=== PATIENT | male | born 1985 | race Caucasian/White ===

== ENCOUNTER 2016-07-27 16:53 | Inpatient (IN) ==
--- NOTE | 2016-07-27 17:15 | Emergency Department Note ---
Disposition Clinical Impression: Bipolar disorder, Depression, Paranoia, Suicidal ideation Disposition: Admitted As Inpatient Condition: Good Referrals: Dorinda Vogt [Primary Care Provider] - Forms: ED Satisfaction Letter Time of Disposition: 21:23 Psych HPI - General Chief Complaint: ED Psychiatric Symptoms Stated Complaint: SI Time Seen by Provider: 07/27/16 17:07 Source: patient, family Mode of arrival: ambulatory Limitations: no limitations Nursing Notes Reviewed: Yes Vital Signs Reviewed: Yes - History of Present Illness HPI Narrative: This is a 31-year-old male who states for the last several days he has been worse with his depression, anxiety, panic attacks, and paranoia. Patient has a history of bipolar disease. Patient states he was with his daughter over the holidays and that helped him. Patient states his ex- is trying to take his daughter away from him and he is having relationship problems and that is making everything amplified. Patient denies any recreational drug or alcohol use. Patient is not having any physical complaints. Pt complaint: suicidal ideation, feels depressed, anxiety - Related Data Home Medications Medication Instructions Recorded Confirmed ClonazePAM [Klonopin] 0.5 mg PO TID 07/27/16 07/27/16 FLUoxetine HCl [PROzac] 20 mg PO DAILY 07/27/16 07/27/16 TraZODone 50 mg PO HS 07/27/16 07/27/16 Allergies Allergy/AdvReac Type Severity Reaction Status Date / Time No Known Allergies Allergy Verified 02/19/15 05:45 All systems ED: reviewed and negative except as stated. Constitutional: Denies: fever, chills, weakness, weight change Eyes: Denies: eye pain, eye discharge, vision change ENT ED: Denies: ear pain, throat pain, dental pain, hearing loss, epistaxis, congestion, dysphagia Cardiovascular: Denies: chest pain, palpitations, dyspnea on exertion, edema, syncope Respiratory: Denies: cough, dyspnea, wheezes, hemoptysis, stridor Gastrointestinal: Denies: abdominal pain, nausea, vomiting, diarrhea, constipation, hematemesis, melena, hematochezia Genitourinary: Denies: urgency, dysuria, frequency, hematuria Musculoskeletal: Denies: back pain, neck pain, arthralgia, myalgia Integumentary: Denies: rash, abrasion, lesions Neurological: Denies: headache, weakness, numbness, paresthesias, confusion, abnormal gait, vertigo Psychiatric: Reports: anxiety, depression, suicidal thoughts, other (paranoia, panic attacks). Denies: homicidal thoughts, auditory hallucinations, visual hallucinations Endocrine: Denies: fatigue Hematological/Lymphatic: Denies: easy bleeding, easy bruising Allergic/Immunologic: Denies: facial swelling, urticaria Past Medical History - Past Medical History Attestation: Yes The following information was validated with the patient. Source: patient Medical history: Reports: seizures Surgical history: Reports: non-contributory Psychiatric history: Reports: anxiety, ADHD, bipolar, depression, prior suicide attempt, previous psychiatric hospitalization - Social History Smoking Status: Current every day smoker Smokeless Tobacco Status: No Alcohol use: Reports: none Drug use: Reports: IVDU, prescription drug abuse Physical Exam - General Limitations: no limitations General appearance: alert, in no apparent distress - Head Head exam: atraumatic, normocephalic, normal inspection - Eye Eye exam: Present: normal appearance, PERRL, EOMI - ENT ENT exam: normal exam, normal oropharynx, mucous membranes moist - Expanded ENT Exam External ear exam: Present: normal external inspection Mouth exam: Present: normal external inspection Teeth exam: Present: normal inspection Throat exam: Present: normal inspection - Neck Neck exam: Present: normal inspection, full ROM, trachea midline - Chest Chest inspection: Present: normal inspection, symmetric chest wall rise - Respiratory Respiratory exam: Present: normal lung sounds bilaterally - Cardiovascular Cardiovascular exam: Present: regular rate, normal rhythm, normal heart sounds - Abdominal Exam Abdominal exam: Present: soft, Non-Tender. Absent: tenderness, distention, guarding, rebound, rigidity - Extremities Exam Extremities exam: Present: normal inspection, full ROM. Absent: tenderness, pedal edema - Expanded Upper Extremity Exam Shoulder exam: Present: normal inspection, full ROM Arm exam: Present: normal inspection, full ROM Elbow exam: Present: normal inspection, full ROM Forearm/Wrist exam: Present: normal inspection, full ROM Hand exam: Present: normal inspection, full ROM Vascular exam: Normal: capillary refill, radial pulse - Expanded Lower Extremity Exam Hip/Pelvis exam: Present: normal inspection, full ROM Upper leg exam: Present: normal inspection, full ROM Knee exam: Present: normal inspection, full ROM Lower leg exam: Present: normal inspection, full ROM Ankle exam: Present: normal inspection, full ROM Foot/toe exam: Present: normal inspection, full ROM Neurovascular/Tendon exam: Absent: motor deficit, sensory deficit, tendon deficit - Back Exam Back exam: Present: normal inspection, full ROM. Absent: tenderness - Neurological Exam Neurological exam: Present: alert, oriented X3 - Expanded Neurological Exam Patient oriented to: Present: person, place, time Coma Scale Eye Opening: Spontaneous Coma Scale Motor Response: Obeys Commands Coma Scale Verbal Response: Oriented Coma Scale Total: 15 - Psychiatric Psychiatric exam: Present: depressed, agitated, suicidal ideation - Skin Skin exam: Present: warm, dry, intact, normal color Course - Consultations Consultation #1: 1A saw pt and will admit him. Time: 21:23 Vital Signs Temperature 97.9 F 07/27/16 17:06 Pulse Rate 99 07/27/16 17:06 Respiratory Rate 18 07/27/16 17:06 Blood Pressure 147/92 07/27/16 17:06 O2 Sat by Pulse Oximetry 98 07/27/16 17:06 Temperature 97.9 F 07/27/16 17:06 Pulse Rate 90 07/27/16 21:41 Respiratory Rate 18 07/27/16 21:41 Blood Pressure 144/90 07/27/16 21:41 O2 Sat by Pulse Oximetry 98 07/27/16 21:41 Oxygen Delivery Oxygen Delivery Room Air Psych - Medical Records Medical records reviewed: Yes I reviewed the patient's medical records. - Lab Data Lab results reviewed: Yes I reviewed the patient's lab results. Result diagrams: 07/27/16 17:33 07/27/16 17:33 Lab Results 07/27/16 07/27/16 07/27/16 Range/Units 17:15 17:15 17:33 WBC 6.0 (4.3-11.1) K/mcL RBC 4.48 (4.19-5.50) M/mcL Hgb 13.6 (12.9-16.9) g/dL Hct 39.8 (37.5-50.1) % MCV 88.8 (83.0-100.0) fL MCH 30.4 (28.0-33.3) pg MCHC 34.2 (31.6-35.5) g/dL RDW 12.9 (11.5-14.5) % Plt Count 339 (140-400) K/mcL MPV 9.1 L (9.4-12.4) fL Immature Gran % 0.3 (0-4) % Seg Neutrophils % 49.1 % Lymphocytes % 38.9 % Monocytes % 8.0 % Eosinophils % 3.0 % Basophils % 0.7 % Neutrophils # 2.9 (1.6-8.9) K/mcL Lymphocytes # 2.3 (0.6-4.6) K/mcL Monocytes # 0.5 (0.0-1.3) K/mcL Eosinophils # 0.2 (0.0-0.6) K/mcL Basophils # 0.0 (0.0-0.2) K/mcL Sodium (136-145) mEq/L Potassium (3.5-4.5) mEq/L Chloride (98-109) mEq/L Carbon Dioxide (19-29) mEq/L BUN (8-26) mg/dL Creatinine (0.72-1.25) mg/dL Est GFR ( Amer) (> 60) Est GFR (Non-Af Amer) (> 60) BUN/Creatinine Ratio (6-26) Glucose (70-99) mg/dL Calculated Osmolality (280-300) Calcium (8.6-10.8) mg/dL Total Bilirubin (0.2-1.2) mg/dL AST (5-34) Units/L ALT (0-55) Units/L Alkaline Phosphatase (38-126) Units/L Serum Total Protein (6.0-8.3) g/dL Albumin (3.5-5.0) g/dL Globulin (2.4-3.5) g/dL Albumin/Globulin Ratio (1.1-2.2) TSH (0.350-4.840) mcIU/mL Urine Color Yellow (Yellow) Urine Clarity Clear (Clear) Urine pH 6.0 (5.0-8.0) pH Units Ur Specific [place] 1.012 (1.010-1.025) Urine Protein Negative (Neg-Trace) mg/dL Urine Glucose (UA) Normal (Normal) mg/dL Urine Ketones 40 H (Negative) mg/dL Urine Blood Negative (Negative) Urine Nitrite Negative (Negative) Urine Bilirubin Negative (Negative) Urine Urobilinogen Normal (Normal) mg/dL Ur Leukocyte Esterase Negative (Negative) Ur Culture Indicated? NO (NO) Salicylates (15-30) mg/dL Urine Opiates Screen Negative (Kmgiob=676) ng/mL Acetaminophen (10-30) mcg/mL Ur Barbiturates Screen Negative (Larbvv=087) ng/mL Ur Phencyclidine Scrn Negative (Cutoff=25) ng/mL Ur Amphetamines Screen Positive H (Dgoslh=2590) ng/mL U Benzodiazepines Scrn Positive H (Kecxbe=605) ng/mL Urine Cocaine Screen Negative (Cutoff= 300) ng/mL U Marijuana (THC) Screen Positive H (Cutoff = 50) ng/mL Ethyl Alcohol (0-10) mg/dL Hepatitis A IgM Ab (Nonreactive) Hep Bs Antigen (Nonreactive) Hep B Core IgM Ab (Nonreactive) Hepatitis C Ab Screen (Nonreactive) 07/27/16 07/27/16 Range/Units 17:33 17:33 WBC (4.3-11.1) K/mcL RBC (4.19-5.50) M/mcL Hgb (12.9-16.9) g/dL Hct (37.5-50.1) % MCV (83.0-100.0) fL MCH (28.0-33.3) pg MCHC (31.6-35.5) g/dL RDW (11.5-14.5) % Plt Count (140-400) K/mcL MPV (9.4-12.4) fL Immature Gran % (0-4) % Seg Neutrophils % % Lymphocytes % % Monocytes % % Eosinophils % % Basophils % % Neutrophils # (1.6-8.9) K/mcL Lymphocytes # (0.6-4.6) K/mcL Monocytes # (0.0-1.3) K/mcL Eosinophils # (0.0-0.6) K/mcL Basophils # (0.0-0.2) K/mcL Sodium 139 (136-145) mEq/L Potassium 3.7 (3.5-4.5) mEq/L Chloride 105 (98-109) mEq/L Carbon Dioxide 28 (19-29) mEq/L BUN 8 (8-26) mg/dL Creatinine 0.70 L (0.72-1.25) mg/dL Est GFR ( Amer) > 60 (> 60) Est GFR (Non-Af Amer) > 60 (> 60) BUN/Creatinine Ratio 11 (6-26) Glucose 160 H (70-99) mg/dL Calculated Osmolality 290 (280-300) Calcium 8.7 (8.6-10.8) mg/dL Total Bilirubin 0.9 (0.2-1.2) mg/dL AST 39 H (5-34) Units/L ALT 125 H (0-55) Units/L Alkaline Phosphatase 58 (38-126) Units/L Serum Total Protein 7.1 (6.0-8.3) g/dL Albumin 3.6 (3.5-5.0) g/dL Globulin 3.5 (2.4-3.5) g/dL Albumin/Globulin Ratio 1.0 L (1.1-2.2) TSH 0.209 L (0.350-4.840) mcIU/mL Urine Color (Yellow) Urine Clarity (Clear) Urine pH (5.0-8.0) pH Units Ur Specific [place] (1.010-1.025) Urine Protein (Neg-Trace) mg/dL Urine Glucose (UA) (Normal) mg/dL Urine Ketones (Negative) mg/dL Urine Blood (Negative) Urine Nitrite (Negative) Urine Bilirubin (Negative) Urine Urobilinogen (Normal) mg/dL Ur Leukocyte Esterase (Negative) Ur Culture Indicated? (NO) Salicylates < 5.0 L (15-30) mg/dL Urine Opiates Screen (Kzeueg=627) ng/mL Acetaminophen < 1.0 L (10-30) mcg/mL Ur Barbiturates Screen (Swknen=928) ng/mL Ur Phencyclidine Scrn (Cutoff=25) ng/mL Ur Amphetamines Screen (Hutynh=7965) ng/mL U Benzodiazepines Scrn (Dlcjbo=452) ng/mL Urine Cocaine Screen (Cutoff= 300) ng/mL U Marijuana (THC) Screen (Cutoff = 50) ng/mL Ethyl Alcohol < 10 (0-10) mg/dL Hepatitis A IgM Ab Nonreactive (Nonreactive) Hep Bs Antigen Nonreactive (Nonreactive) Hep B Core IgM Ab Nonreactive (Nonreactive) Hepatitis C Ab Screen Reactive H (Nonreactive) - EKG Data EKG attestation: Yes I reviewed and interpreted this EKG. EKG shows normal: sinus rhythm Rate: bradycardia (59) Rhythm: NSR [place]/QRS: normal Interpretation: no acute changes, normal EKG Psychiatric Medical Clearance - Medical Clearance Checklist Medical History: No Social History Section defined Current Vitals: Last Vital Signs Temp 97.9 F 07/27/16 17:06 Pulse 90 07/27/16 21:41 Resp 18 07/27/16 21:41 BP 144/90 07/27/16 21:41 Pulse Ox 98 07/27/16 21:41 Psychiatric Lab Panel: Drug Levels and Toxicity 07/27/16 07/27/16 17:15 17:33 Urine Opiates Screen Negative Acetaminophen < 1.0 L Ur Barbiturates Screen Negative Ur Phencyclidine Scrn Negative Ur Amphetamines Screen Positive H U Benzodiazepines Scrn Positive H Urine Cocaine Screen Negative U Marijuana (THC) Screen Positive H Ethyl Alcohol < 10 Abnormal Labs: Abnormal lab results MPV 9.1 fL (9.4-12.4) L 07/27/16 17:33 Creatinine 0.70 mg/dL (0.72-1.25) L 07/27/16 17:33 Glucose 160 mg/dL (70-99) H 07/27/16 17:33 AST 39 Units/L (5-34) H 07/27/16 17:33 ALT 125 Units/L (0-55) H 07/27/16 17:33 Albumin/Globulin Ratio 1.0 (1.1-2.2) L 07/27/16 17:33 TSH 0.209 mcIU/mL (0.350-4.840) L 07/27/16 17:33 Urine Ketones 40 mg/dL (Negative) H 07/27/16 17:15 Salicylates < 5.0 mg/dL (15-30) L 07/27/16 17:33 Acetaminophen < 1.0 mcg/mL (10-30) L 07/27/16 17:33 Ur Amphetamines Screen Positive ng/mL (Evalpn=1223) H 07/27/16 17:15 U Benzodiazepines Scrn Positive ng/mL (Siebzu=995) H 07/27/16 17:15 U Marijuana (THC) Screen Positive ng/mL (Cutoff = 50) H 07/27/16 17:15 Hepatitis C Ab Screen Reactive (Nonreactive) H 07/27/16 17:33 Statement of Medical Clearance: I have evaluated the patient, reviewed diagnostic information, and certify that the patient's medical condition is sufficiently stable that transfer to the psychiatric unit does not pose a significant risk of deterioration.
[2016-07-27 17:26] LABS: Bilirubin,Urine Negative (Negative); Blood,Urine Negative (Negative); Clarity,Urine Clear (Clear); Color,Urine Yellow (Yellow); Glucose,Urine (UA) Normal (Normal); Ketones,Urine 40 mg/dL (Negative); Leukocyte Esterase,Urine Negative (Negative); Nitrite,Urine Negative (Negative); Protein,Urine Negative (Neg-Trace); Specific Gravity,Urine 1.012 (1.010-1.025); Urobilinogen,Urine Normal (Normal)
[2016-07-27 17:31] LABS: Amphetamine Screen,Urine Positive ng/mL (Cutoff=1000); Barbiturate Screen,Urine Negative ng/mL (Cutoff=200); Benzodiazepines Screen,Urine Positive ng/mL (Cutoff=200); Cannabinoid Screen,Urine Positive ng/mL (Cutoff = 50); Cocaine Screen,Urine Negative ng/mL (Cutoff= 300); Opiate Screen,Urine Negative ng/mL (Cutoff=300); Phencyclidine Screen,Urine Negative ng/mL (Cutoff=25)
[2016-07-27 17:54] LABS: Basophils % 0.7 %; Eosinophils # 0.2 K/mcL (0.0-0.6); Hematocrit 39.8 % (37.5-50.1); Hemoglobin 13.6 g/dL (12.9-16.9); Immature Granulocytes % 0.3 % (0-4); Lymphocytes # 2.3 K/mcL (0.6-4.6); Lymphocytes % 38.9 %; Mean Corpuscular HGB Conc 34.2 g/dL (31.6-35.5); Mean Corpuscular Hemoglobin 30.4 pg (28.0-33.3); Mean Corpuscular Volume 88.8 fL (83.0-100.0); Mean Platelet Volume 9.1 fL (9.4-12.4); Monocytes # 0.5 K/mcL (0.0-1.3); Neutrophils # 2.9 K/mcL (1.6-8.9); Platelet Count 339 K/mcL (140-400); Red Blood Count 4.48 M/mcL (4.19-5.50); Red Cell Distribution Width 12.9 % (11.5-14.5); Segmented Neutrophils % 49.1 %
[2016-07-27 18:18] LABS: Alanine Aminotransferase 125 Units/L (0-55); Albumin 3.6 g/dL (3.5-5.0); Alkaline Phosphatase 58 Units/L (38-126); Aspartate Amino Transferase 39 Units/L (5-34); BUN/Creatinine Ratio 11 (6-26); Bilirubin,Total 0.9 mg/dL (0.2-1.2); Blood Urea Nitrogen 8 mg/dL (8-26); Calcium 8.7 mg/dL (8.6-10.8); Carbon Dioxide 28 mEq/L (19-29); Chloride 105 mEq/L (98-109); Globulin 3.5 g/dL (2.4-3.5); Glucose 160 mg/dL (70-99); Osmolality,Calculated 290 (280-300); Potassium 3.7 mEq/L (3.5-4.5); Sodium 139 mEq/L (136-145); Total Protein 7.1 g/dL (6.0-8.3); eGFR For African Americans > 60 (> 60); eGFR For Non-African Americans > 60 (> 60)
[2016-07-27 18:20] LABS: Acetaminophen < 1.0 mcg/mL (10-30); Ethanol < 10 mg/dL (0-10); Salicylate < 5.0 mg/dL (15-30)
[2016-07-27 18:40] LABS: Thyroid Stimulating Hormone 0.209 mcIU/mL (0.350-4.840)
[2016-07-27 19:52] LABS: Hepatitis A Antibody IgM Nonreactive (Nonreactive); Hepatitis B Core IgM Nonreactive (Nonreactive); Hepatitis B Surface Antigen Nonreactive (Nonreactive)
[2016-07-27] MEDS ORDERED: *HR* LORazepam 1 MG TABLET PO ONE (21:15)
[2016-07-27 22:16] LABS: Hepatitis C Virus Antibody Reactive (Nonreactive)
[2016-07-28] MEDS ORDERED: Ibuprofen 400 MG TABLET PO PRN (00:01)
[2016-07-28] MEDS ORDERED: MOM Conc 10 ML UD.LIQ PO PRN (00:01)
[2016-07-28] MEDS ORDERED: Haloperidol Lactate 5 MG/ML VIAL IM PRN (00:01)
[2016-07-28] MEDS ORDERED: Mag Hydrox/Al Hydrox/Simeth 30 ML UDC PO PRN (00:01)
[2016-07-28] MEDS ORDERED: *HR* LORazepam 1 MG TABLET PO PRN (00:17)
[2016-07-28] MEDS ORDERED: *HR* LORazepam 2 MG/ML VIAL IM PRN (00:17)
[2016-07-28] MEDS ORDERED: traZODone 50 MG TABLET PO SCH (00:25)
[2016-07-28] MEDS: Nicotine 21 MG PATCH.TD24 TD SCH ×2 (01:05→10:44)
[2016-07-28] MEDS ORDERED: FLUoxetine 20 MG CAPSULE PO SCH (09:00)
--- NOTE | 2016-07-28 10:23 | Psychiatry History & Physical ---
Date of Encounter: 07/28/16 Time of Encounter: 09:40 History of Present Illness Patient Stated Chief Complaint: "I feel suicidal" Medicare Admission Attestation: For traditional Medicare patients the provided hospital inpatient services are reasonable and necessary and in the case of services not specified as inpatient -only under 42 CFR 419.22 (n), that they are appropriately provided as inpatient services in accordance 42 CFR 412.3. For Critical Access Hospital the patient may reasonably be expected to be discharged or transferred to a hospital within 96 hours after admission to the Critical Access Hospital. Admitted From: Emergency Dept Plans for Post Hospital Care: Home History of Present Illness: Mr. Yang is a 31 year old male Was referred for hospitalization for depression and suicidal ideation with a plan to hang himself. Patient is known to us from prior hospitalization he is noted to have a diagnosis of depression. Patient reported that he has been receiving treatment for depression but has been noticing a relapse of his depressive symptoms for the last couple of months. He reported that his ongoing stressors included the holiday season and arguments and conflicts with his ex- who did not allow him to spend time with his daughter around the holidays. Patient reported that this has devastated him and his contribution to his depressive symptoms. He also reported that he broke up with his girlfriend which is also a big stressor. Because of the above-mentioned challenges he has been noticing low mood and anhedonia hopelessness helplessness crying and weeping spells and low energy levels poor sleep and appetite and recurrent suicidal thoughts and ideations. He was actively suicidal and was not able to contract for safety and it was decided to hospitalize him at [address] for further stabilization and for safety concerns Past Med Surg Social Fam HX - Past Medical History Medical history: hepatitis, other - Past Psychiatric History Psychiatric history: Reports: anxiety, depression, previous psychiatric hospitalization Past psychiatric history details: Patient has a history of depression and anxiety and has prior psychiatric hospitalization at [facility] in October 2015. Patient is currently receiving outpatient treatment from his primary care physician. Patient has been prescribed Prozac BuSpar and trazodone and Klonopin. Family psychiatric history: Yes Family Psychiatric History Details: Uncle and aunt suffer from anxiety Family History of Suicide: Attempted Family Suicide History Details: Aunt has attempted suicide by overdosing - Past Surgical History Surgical History: non-contributory - Social History Smoking Status: Current every day smoker Smokeless Tobacco Status: No Alcohol use: none Drug use: IVDU, prescription drug abuse Occupational status: disabled Current living situation: Home - Independent Activity Level: Independent ambulation Recent Out of Country Travel Within the Last 8 Weeks: No Exposure or Possible Exposure to Illness During Travel: No Additional social history: Patient is . Has an 18-year-old daughter. He resides by himself and is currently on disability. He denies any current legal issues. Medications & Allergies Buspirone HCl [Buspar] 5 mg PO BID 07/27/16 [History] ClonazePAM [Klonopin] 0.5 mg PO TID 07/27/16 [History] FLUoxetine HCl [PROzac] 20 mg PO DAILY 07/27/16 [History] Propranolol HCl [Innopran Xl] 80 mg PO DAILY 07/27/16 [History] TraZODone 50 mg PO HS 07/27/16 [History] Allergies No Known Allergies Allergy (Verified 02/19/15 05:45) Review of Systems Constitutional: Denies: fever, chills, weakness, weight change Eyes: Denies: eye pain, vision change Ears, Nose, Throat: Denies: ear pain, throat pain, dental pain, hearing loss, congestion Cardiovascular: Denies: chest pain, palpitations, dyspnea on exertion Respiratory: Denies: cough, dyspnea, wheezes Gastrointestinal: Denies: abdominal pain, nausea, vomiting, diarrhea, constipation Genitourinary male: Denies: urgency, dysuria, frequency, genital lesions Genitourinary female: Denies: urgency, dysuria, frequency, abnormal menses, dyspareunia Musculoskeletal: Denies: joint swelling, joint pain Integumentary: Denies: rash, lesions, pruritus Neurological: Denies: headache, weakness, numbness, memory loss Psychiatric: Reports: depression, anxiety, abnormal sleep pattern, suicidal ideation, difficulty concentrating, hopelessness Endocrine: Denies: fatigue, heat or cold intolerance Hematologic/Lymphatic: Denies: easy bruising, lymphadenopathy Allergic/Immunologic: Denies: urticaria, itchy eyes Mental Status Exam Patient orientation: Yes Person, Yes Time, Yes Place Level of alertness: Alert Patient appearance: Disheveled Behavior: anxious, withdrawn Psychomotor activity: Slowed Eye contact: Maintains Eye Contact Mood description: Depressed, Anxious Affect description: congruent with mood, constricted, dysphoric Speech pattern: Slowed Speech volume: Soft/Quiet Thought process: Linear, Goal Oriented Thought content: Yes Suicidal ideation Perceptual disturbances: No Auditory hallucinations, No Visual hallucinations Attention span: Capable of Focused Attention Memory description: Grossly Intact Patient reliability: Reliable Historian Intelligence estimate: Average Judgment: Fair Insight: Partial Results - Vital Signs Vital signs: Temp Pulse Resp BP Pulse Ox 98 F 69 16 97/51 98 07/28/16 09:00 07/28/16 09:00 07/28/16 09:00 07/28/16 09:00 07/27/16 21:41 - Labs Labs: Laboratory Last Values WBC 6.0 K/mcL (4.3-11.1) 07/27/16 17:33 RBC 4.48 M/mcL (4.19-5.50) 07/27/16 17:33 Hgb 13.6 g/dL (12.9-16.9) 07/27/16 17:33 Hct 39.8 % (37.5-50.1) 07/27/16 17:33 MCV 88.8 fL (83.0-100.0) 07/27/16 17:33 MCH 30.4 pg (28.0-33.3) 07/27/16 17:33 MCHC 34.2 g/dL (31.6-35.5) 07/27/16 17:33 RDW 12.9 % (11.5-14.5) 07/27/16 17:33 Plt Count 339 K/mcL (140-400) 07/27/16 17:33 MPV 9.1 fL (9.4-12.4) L 07/27/16 17:33 Immature Gran % 0.3 % (0-4) 07/27/16 17:33 Seg Neutrophils % 49.1 % 07/27/16 17:33 Lymphocytes % 38.9 % 07/27/16 17:33 Monocytes % 8.0 % 07/27/16 17:33 Eosinophils % 3.0 % 07/27/16 17:33 Basophils % 0.7 % 07/27/16 17:33 Neutrophils # 2.9 K/mcL (1.6-8.9) 07/27/16 17:33 Lymphocytes # 2.3 K/mcL (0.6-4.6) 07/27/16 17:33 Monocytes # 0.5 K/mcL (0.0-1.3) 07/27/16 17:33 Eosinophils # 0.2 K/mcL (0.0-0.6) 07/27/16 17:33 Basophils # 0.0 K/mcL (0.0-0.2) 07/27/16 17:33 Sodium 139 mEq/L (136-145) 07/27/16 17:33 Potassium 3.7 mEq/L (3.5-4.5) 07/27/16 17:33 Chloride 105 mEq/L (98-109) 07/27/16 17:33 Carbon Dioxide 28 mEq/L (19-29) 07/27/16 17:33 BUN 8 mg/dL (8-26) 07/27/16 17:33 Creatinine 0.70 mg/dL (0.72-1.25) L 07/27/16 17:33 Est GFR ( Amer) > 60 (> 60) 07/27/16 17:33 Est GFR (Non-Af Amer) > 60 (> 60) 07/27/16 17:33 BUN/Creatinine Ratio 11 (6-26) 07/27/16 17:33 Glucose 160 mg/dL (70-99) H 07/27/16 17:33 Calculated Osmolality 290 (280-300) 07/27/16 17:33 Calcium 8.7 mg/dL (8.6-10.8) 07/27/16 17:33 Total Bilirubin 0.9 mg/dL (0.2-1.2) 07/27/16 17:33 AST 39 Units/L (5-34) H 07/27/16 17:33 ALT 125 Units/L (0-55) H 07/27/16 17:33 Alkaline Phosphatase 58 Units/L (38-126) 07/27/16 17:33 Serum Total Protein 7.1 g/dL (6.0-8.3) 07/27/16 17:33 Albumin 3.6 g/dL (3.5-5.0) 07/27/16 17:33 Globulin 3.5 g/dL (2.4-3.5) 07/27/16 17:33 Albumin/Globulin Ratio 1.0 (1.1-2.2) L 01/06/17 17:33 TSH 0.209 mcIU/mL (0.350-4.840) L 07/27/16 17:33 Urine Color Yellow (Yellow) 07/27/16 17:15 Urine Clarity Clear (Clear) 07/27/16 17:15 Urine pH 6.0 pH Units (5.0-8.0) 07/27/16 17:15 Ur Specific [place] 1.012 (1.010-1.025) 07/27/16 17:15 Urine Protein Negative mg/dL (Neg-Trace) 07/27/16 17:15 Urine Glucose (UA) Normal mg/dL (Normal) 07/27/16 17:15 Urine Ketones 40 mg/dL (Negative) H 07/27/16 17:15 Urine Blood Negative (Negative) 07/27/16 17:15 Urine Nitrite Negative (Negative) 07/27/16 17:15 Urine Bilirubin Negative (Negative) 07/27/16 17:15 Urine Urobilinogen Normal mg/dL (Normal) 07/27/16 17:15 Ur Leukocyte Esterase Negative (Negative) 07/27/16 17:15 Ur Culture Indicated? NO (NO) 07/27/16 17:15 Salicylates < 5.0 mg/dL (15-30) L 07/27/16 17:33 Urine Opiates Screen Negative ng/mL (Prundd=032) 07/27/16 17:15 Acetaminophen < 1.0 mcg/mL (10-30) L 07/27/16 17:33 Ur Barbiturates Screen Negative ng/mL (Zlyebn=878) 07/27/16 17:15 Ur Phencyclidine Scrn Negative ng/mL (Cutoff=25) 07/27/16 17:15 Ur Amphetamines Screen Positive ng/mL (Wcdbac=9327) H 07/27/16 17:15 U Benzodiazepines Scrn Positive ng/mL (Onlntw=203) H 07/27/16 17:15 Urine Cocaine Screen Negative ng/mL (Cutoff= 300) 07/27/16 17:15 U Marijuana (THC) Screen Positive ng/mL (Cutoff = 50) H 07/27/16 17:15 Ethyl Alcohol < 10 mg/dL (0-10) 07/27/16 17:33 Hepatitis A IgM Ab Nonreactive (Nonreactive) 07/27/16 17:33 Hep Bs Antigen Nonreactive (Nonreactive) 07/27/16 17:33 Hep B Core IgM Ab Nonreactive (Nonreactive) 07/27/16 17:33 Hepatitis C Ab Screen Reactive (Nonreactive) H 07/27/16 17:33 Assessment and Plan (1) MDD (major depressive disorder), recurrent severe, without psychosis Current visit: Yes Status: Acute Plan: Admit inpatient for safety and stabilization, Close observation, Suicide Precautions per unit protocol, Encourage participation in unit milieu, Group Therapy, Monitor sleep, Monitor appetite Additional Plan: Her reviewing the symptom diagnoses and treatment plan and explained the risks benefits side effects alternative to treatment and consequences of no treatment and informed consent from the patient was decided to discontinue patient's Prozac since it has not been helpful and to start the patient on Effexor which will be titrated and adjusted accordingly. Patient will also be increased for his anxiety symptoms. Patient will be continued on Klonopin as he was taking prior to his admission. Patient will be continued on trazodone and the dose will be increased to 100 mg at bedtime for insomnia. Risks, benefits, side effects, alternatives discussed w/pt: Yes Patient agreeable to treatment: Yes Plans for Post Hospital Care: Home Estimated Length of Stay (Days): 3 (2) Anxiety disorder Current visit: No Status: Acute Plan: Admit inpatient for safety and stabilization, Close observation, Suicide Precautions per unit protocol, Encourage participation in unit milieu, Group Therapy, Monitor sleep, Monitor appetite Additional Plan: Patient's BuSpar will be increased and Will be continued on Klonopin for his anxiety symptoms. These started on Effexor which will help with his anxiety as well as depression. Risks, benefits, side effects, alternatives discussed w/pt: Yes Patient agreeable to treatment: Yes Plans for Post Hospital Care: Home Estimated Length of Stay (Days): 3 Qualifiers: Anxiety disorder type: unspecified anxiety disorder Qualified Code(s): F41.9 - Anxiety disorder, unspecified
[2016-07-28] MEDS: clonazePAM 0.5 MG TABLET PO SCH ×3 (10:44→21:31)
[2016-07-28] MEDS: Venlafaxine XR (24 HR) 75 MG CAP.ER.24H PO SCH (10:44)
[2016-07-28] MEDS: traZODone 50 MG TABLET PO SCH (21:31)
[2016-07-29] MEDS: clonazePAM 0.5 MG TABLET PO SCH ×3 (09:40→20:07)
[2016-07-29] MEDS: Venlafaxine XR (24 HR) 75 MG CAP.ER.24H PO SCH (09:40)
[2016-07-29] MEDS: Nicotine 21 MG PATCH.TD24 TD SCH (09:40)
--- NOTE | 2016-07-29 12:08 | Psychiatry Progress Note ---
Date of Encounter: 07/29/16 Time of Encounter: 10:58 Subjective Interval history: Patient seen and interviewed. Not much change from yesterday. Continued to verbalize hopelessness helplessness and anxiety and nervousness. Patient is withdrawn and isolated not attending groups and participating in any activities. Patient is tolerating medications fairly well. Patient is unable to verbalize a safety plan and does not feel safe going home. Patient is encouraged to attend groups and start working on a safety plan. Review of Systems Psychiatric: Reports: depression, anxiety, abnormal sleep pattern, suicidal ideation, difficulty concentrating, hopelessness Objective: Exam Patient orientation: Yes Person, Yes Time, Yes Place Level of alertness: Alert Patient appearance: Disheveled Behavior: anxious, withdrawn Psychomotor activity: Slowed Eye contact: Maintains Eye Contact Mood description: Depressed, Anxious Affect description: congruent with mood, constricted, dysphoric Speech pattern: Slowed Speech volume: Soft/Quiet Thought process: Linear, Goal Oriented Thought content: Yes Suicidal ideation Perceptual disturbances: No Auditory hallucinations, No Visual hallucinations Judgment: Fair Insight: Partial Results - Vital Signs Vital Signs: Temp Pulse Resp BP Pulse Ox 98.4 F 65 16 119/69 98 07/29/16 09:00 07/29/16 09:00 07/29/16 09:00 07/29/16 09:00 07/27/16 21:41 Assessment and Plan (1) MDD (major depressive disorder), recurrent severe, without psychosis Current visit: Yes Status: Acute Plan: Continue hospitalization, Close observation, Suicide Precautions per unit protocol, Encourage participation in unit milieu, Group Therapy, Monitor sleep, Monitor appetite Additional Plan: continue Effexor Risks, benefits, side effects, alternatives discussed w/pt: Yes Patient agreeable to treatment: Yes (2) Anxiety disorder Current visit: No Status: Acute Plan: Continue hospitalization, Close observation, Suicide Precautions per unit protocol, Encourage participation in unit milieu, Group Therapy, Monitor sleep, Monitor appetite Risks, benefits, side effects, alternatives discussed w/pt: Yes Patient agreeable to treatment: Yes Qualifiers: Anxiety disorder type: unspecified anxiety disorder Qualified Code(s): F41.9 - Anxiety disorder, unspecified Consult Discharge Plan - Plan Referrals: Dorinda Vogt [Primary Care Provider] -
[2016-07-29] MEDS: traZODone 50 MG TABLET PO SCH (20:07)
[2016-07-30] MEDS: Venlafaxine XR (24 HR) 75 MG CAP.ER.24H PO SCH (09:04)
[2016-07-30] MEDS: clonazePAM 0.5 MG TABLET PO SCH ×3 (09:04→20:59)
[2016-07-30] MEDS: Nicotine 21 MG PATCH.TD24 TD SCH (09:04)
--- NOTE | 2016-07-30 12:11 | Electrocardiograph Report ---
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
--- NOTE | 2016-07-30 17:34 | Psychiatry Progress Note ---
Date of Encounter: 07/30/16 Time of Encounter: 16:00 Review of Systems Psychiatric: Reports: depression, anxiety, abnormal sleep pattern, suicidal ideation, difficulty concentrating, hopelessness Objective: Exam Patient orientation: Yes Person, Yes Time, Yes Place Level of alertness: Alert Patient appearance: Disheveled Behavior: anxious, withdrawn Psychomotor activity: Slowed Eye contact: Maintains Eye Contact Mood description: Depressed, Anxious Affect description: congruent with mood, constricted, dysphoric Speech pattern: Slowed Speech volume: Soft/Quiet Thought process: Linear, Goal Oriented Thought content: Yes Suicidal ideation Perceptual disturbances: No Auditory hallucinations, No Visual hallucinations Judgment: Fair Insight: Partial Results - Vital Signs Vital Signs: Temp Pulse Resp BP Pulse Ox 97.4 F L 50 16 119/70 98 07/30/16 08:29 07/30/16 08:29 07/30/16 08:29 07/30/16 08:29 07/27/16 21:41 Assessment and Plan (1) MDD (major depressive disorder), recurrent severe, without psychosis Current visit: Yes Status: Acute Plan: Continue hospitalization, Close observation, Suicide Precautions per unit protocol, Encourage participation in unit milieu, Group Therapy, Monitor sleep, Monitor appetite Additional Plan: continue Effexor Risks, benefits, side effects, alternatives discussed w/pt: Yes Patient agreeable to treatment: Yes (2) Anxiety disorder Current visit: No Status: Acute Plan: Continue hospitalization, Close observation, Suicide Precautions per unit protocol, Encourage participation in unit milieu, Group Therapy, Monitor sleep, Monitor appetite Additional Plan: With continued peers for Klonopin at the same dose without change. Risks, benefits, side effects, alternatives discussed w/pt: Yes Patient agreeable to treatment: Yes Qualifiers: Anxiety disorder type: unspecified anxiety disorder Qualified Code(s): F41.9 - Anxiety disorder, unspecified Consult Discharge Plan - Plan Referrals: [facility] [Outside] - 08/06/16 2:00 pm (The above appointment is with Gaetano Burton, counselor. He will open your case and will make a referral to the psychiatric prescriber. ) Dorinda Vogt [Primary Care Provider] - (Patient elects to arrange his own follow-up appointment.)
[2016-07-30] MEDS: traZODone 50 MG TABLET PO SCH (20:59)
[2016-07-31] MEDS: Nicotine 21 MG PATCH.TD24 TD SCH (09:01)
[2016-07-31] MEDS: Venlafaxine XR (24 HR) 75 MG CAP.ER.24H PO SCH (09:03)
[2016-07-31] MEDS: clonazePAM 0.5 MG TABLET PO SCH ×3 (09:03→20:55)
--- NOTE | 2016-07-31 15:37 | Psychiatry Progress Note ---
Date of Encounter: 07/31/16 Time of Encounter: 14:00 Subjective Interval history: Patient was seen for follow-up reports feeling better and this anxious the nursing staff reports that he is sleeping well still seclusive but attempted to participate in activities he denied any suicidal ideation and tolerating his medication without any complaints. Review of Systems Psychiatric: Reports: depression, anxiety, abnormal sleep pattern, difficulty concentrating, irritability Objective: Exam Patient orientation: Yes Person, Yes Time, Yes Place Level of alertness: Alert Patient appearance: Well Groomed Behavior: cooperative, anxious, withdrawn Psychomotor activity: Increased Eye contact: Maintains Eye Contact Mood description: Euthymic/stable, Anxious Affect description: congruent with mood, constricted Speech pattern: Normal rate, Appropriate, Clear Speech volume: Normal Thought process: Linear, Goal Oriented Thought content: No Suicidal ideation, No Homicidal ideation Perceptual disturbances: No Auditory hallucinations, No Visual hallucinations Judgment: Fair Insight: Partial Results - Vital Signs Vital Signs: Temp Pulse Resp BP Pulse Ox 98.6 F 63 16 122/72 98 07/31/16 09:00 07/31/16 09:00 07/31/16 09:00 07/31/16 09:00 07/27/16 21:41 Assessment and Plan (1) MDD (major depressive disorder), recurrent severe, without psychosis Current visit: Yes Status: Acute Plan: Continue hospitalization, Close observation, Encourage participation in unit milieu, Group Therapy, Monitor sleep, Monitor appetite Risks, benefits, side effects, alternatives discussed w/pt: Yes Patient agreeable to treatment : Yes (2) Anxiety disorder Current visit: No Status: Acute Plan: Continue hospitalization, Close observation, Suicide Precautions per unit protocol, Encourage participation in unit milieu, Group Therapy, Monitor sleep, Monitor appetite Risks, benefits, side effects, alternatives discussed w/pt: Yes Patient agreeable to treatment: Yes Qualifiers: Anxiety disorder type: unspecified anxiety disorder Qualified Code(s): F41.9 - Anxiety disorder, unspecified Consult Discharge Plan - Plan Referrals: [facility] [Outside] - 08/06/16 2:00 pm (The above appointment is with Gaetano Burton, counselor. He will open your case and will make a referral to the psychiatric prescriber. ) Dorinda Vogt [Primary Care Provider] - (Patient elects to arrange his own follow-up appointment.)
[2016-07-31] MEDS: traZODone 50 MG TABLET PO SCH (20:55)
[2016-08-01] MEDS: Nicotine 21 MG PATCH.TD24 TD SCH (09:11)
[2016-08-01] MEDS: Venlafaxine XR (24 HR) 75 MG CAP.ER.24H PO SCH (09:12)
[2016-08-01] MEDS: clonazePAM 0.5 MG TABLET PO SCH ×2 (09:12→15:03)
[2016-08-01 09:18] VITALS: BP 110/75
--- NOTE | 2016-08-01 09:58 | Discharge Summary ---
Date of Encounter: 08/01/16 Time of Encounter: 09:56 Diagnosis - Discharge Diagnosis (1) MDD (major depressive disorder), recurrent severe, without psychosis Status: Acute (2) Anxiety disorder Priority: Primary Status: Acute Qualifiers: Anxiety disorder type: unspecified anxiety disorder Qualified Code(s): F41.9 - Anxiety disorder, unspecified Medications - Discharge Medications Prescriptions: Buspirone HCl [Buspar] 10 mg PO TID #180 tablet FLUoxetine HCl [Prozac] 20 mg PO DAILY #30 capsule Propranolol HCl [Innopran Xl] 80 mg PO DAILY #30 cap.er.24h TraZODone 50 mg PO HS #30 tablet Venlafaxine XR (24 HR) [Effexor XR] 75 mg PO DAILY #30 cap.er.24h ClonazePAM [Klonopin] 0.5 mg PO TID 07/27/16 [History] Buspirone HCl [Buspar] 10 mg PO TID #180 tablet 08/01/16 [Rx] FLUoxetine HCl [Prozac] 20 mg PO DAILY #30 capsule 08/01/16 [Rx] Propranolol HCl [Innopran Xl] 80 mg PO DAILY #30 cap.er.24h 08/01/16 [Rx] TraZODone 50 mg PO HS #30 tablet 08/01/16 [Rx] Venlafaxine XR (24 HR) [Effexor XR] 75 mg PO DAILY #30 cap.er.24h 08/01/16 [Rx] Allergies No Known Allergies Allergy (Verified 02/19/15 05:45) Provider Date of admission: 07/27/16 22:44 Primary care physician: Dorinda Vogt Discharging clinician: Alonzo Elliott Assessment and Plan - Patient/Caregiver Discharge Instructions Activity: resume usual activities as tolerated Diet: regular diet - Follow up Plan Follow up with: [facility] [Outside] - 08/06/16 2:00 pm (The above appointment is with scott Hammondor. He will open your case and will make a referral to the psychiatric prescriber. ) Dorinda Vogt [Primary Care Provider] - (Patient elects to arrange his own follow-up appointment.) Disposition: Home, Self-Care Hospital Course Hospital course: Mr. Yang is a 31 year old male admitted with the chief complaint of depression and suicidal ideation. Patient was stressed out the holidays family conflicts and recent breakup with his girlfriend. On admission patient was evaluated and his medication were reviewed Effexor was added on and BuSpar and trazodone dose was increased. Patient continued on the fluoxetine. Patient's symptom improved including sleep and appetite and energy level and his depression was reduced, he became more optimistic and future oriented and on several occasions and prior to discharge denied any intense of suicide or self-harm. Prior to discharge patient was reporting stable sleep and appetite, energy level was increased and denies any hopelessness or suicidal thoughts. He tolerated medication without any side effects and became anxious to be discharged. - Time Spent with Patient Total time spent providing and/or coordinating discharge services: Greater than 30 minutes Quality - Multiple Antipsychotics Patient discharged on 2 or more antipsychotic medications: No Procedures - Procedures Procedures: Medication Management, Crisis Stabilization, Supportive Therapy, Group Therapy, Psychoeducational Therapy Mental Status Exam - Mental Status Exam Patient orientation: Yes Person, Yes Time, Yes Place Level of alertness: Alert Patient appearance: Well Groomed Behavior: cooperative, anxious, withdrawn Psychomotor activity: Increased Eye contact: Maintains Eye Contact Mood description: Euthymic/stable, Anxious Affect description: congruent with mood, constricted Speech pattern: Normal rate, Appropriate, Clear Speech Volume: Normal Thought process: Linear, Goal Oriented Thought Content: No Suicidal ideation, No Homicidal ideation Perceptual Disturbances: No Auditory hallucinations, No Visual hallucinations Judgment: Fair Insight: Partial
== END 2016-08-01 15:50 | disposition home or self-care (01) | DRG 885 ==
LOC: EMEROO 16:53 → SUATTDRO 22:44 → 1ANU 22:44
PROVIDERS: ADMIT Psychiatry & Neurology Psychiatry; ATTEND Psychiatry & Neurology Psychiatry

== ENCOUNTER 2016-12-08 00:30 | Inpatient (IN) ==
[2016-12-08 01:02] LABS: Basophils % 0.3 %; Eosinophils # 0.3 K/mcL (0.0-0.6); Eosinophils % 2.7 %; Hematocrit 39.2 % (37.5-50.1); Hemoglobin 13.5 g/dL (12.9-16.9); Immature Granulocytes % 0.3 % (0-4); Lymphocytes # 2.6 K/mcL (0.6-4.6); Lymphocytes % 24.6 %; Mean Corpuscular HGB Conc 34.4 g/dL (31.6-35.5); Mean Corpuscular Hemoglobin 29.9 pg (28.0-33.3); Mean Corpuscular Volume 86.7 fL (83.0-100.0); Mean Platelet Volume 9.6 fL (9.4-12.4); Monocytes # 1.1 K/mcL (0.0-1.3); Monocytes % 10.1 %; Neutrophils # 6.6 K/mcL (1.6-8.9); Platelet Count 298 K/mcL (140-400); Red Blood Count 4.52 M/mcL (4.19-5.50); Red Cell Distribution Width 12.2 % (11.5-14.5)
[2016-12-08 01:13] LABS: Bilirubin,Urine Small (Negative); Blood,Urine Negative (Negative); Clarity,Urine Cloudy (Clear); Color,Urine Dark Yellow (Yellow); Glucose,Urine (UA) Normal (Normal); Ketones,Urine 80 mg/dL (Negative); Leukocyte Esterase,Urine Negative (Negative); Nitrite,Urine Negative (Negative); Protein,Urine Trace mg/dL (Neg-Trace); Specific Gravity,Urine > 1.030 (1.010-1.025); Urobilinogen,Urine Normal (Normal)
[2016-12-08 01:14] LABS: Hyaline Casts,Urine Moderate per lpf (None-Few); Squamous Epithelial Cell,Urine Many per lpf (None-Few)
[2016-12-08 01:15] LABS: Platelet Estimate Normal (Normal); Reactive Lymphocytes Present (Not Present)
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
[2016-12-08 01:19] LABS: Amphetamine Screen,Urine Positive ng/mL (Cutoff=1000); Barbiturate Screen,Urine Negative ng/mL (Cutoff=200); Benzodiazepines Screen,Urine Positive ng/mL (Cutoff=200); Cannabinoid Screen,Urine Positive ng/mL (Cutoff = 50); Cocaine Screen,Urine Negative ng/mL (Cutoff= 300); Opiate Screen,Urine Negative ng/mL (Cutoff=300); Phencyclidine Screen,Urine Negative ng/mL (Cutoff=25)
[2016-12-08 01:21] LABS: BUN/Creatinine Ratio 19 (6-26); Blood Urea Nitrogen 15 mg/dL (8-26); Calcium 9.2 mg/dL (8.6-10.8); Carbon Dioxide 26 mEq/L (19-29); Chloride 100 mEq/L (98-109); Glucose 111 mg/dL (70-99); Osmolality,Calculated 286 (280-300); Potassium 3.5 mEq/L (3.5-4.5); Sodium 137 mEq/L (136-145); eGFR For African Americans > 60 (> 60); eGFR For Non-African Americans > 60 (> 60)
[2016-12-08 01:24] LABS: Acetaminophen < 1.0 mcg/mL (10-30); Ethanol < 10 mg/dL (0-10); Salicylate < 5.0 mg/dL (15-30)
[2016-12-08 01:44] LABS: Bacteria,Urine Few per hpf (None-Few); Calcium Oxalate Crystals,Urine Present; Mucus,Urine Few (Few)
[2016-12-08] MEDS ORDERED: Mag Hydrox/Al Hydrox/Simeth 30 ML UDC PO PRN (03:39)
[2016-12-08] MEDS ORDERED: *HR* LORazepam 2 MG/ML VIAL IM PRN (03:39)
[2016-12-08] MEDS ORDERED: MOM Conc 10 ML UD.LIQ PO PRN (03:39)
[2016-12-08] MEDS ORDERED: Haloperidol Lactate 5 MG/ML VIAL IM PRN (03:39)
[2016-12-08] MEDS ORDERED: *HR* LORazepam 1 MG TABLET PO PRN (03:39)
[2016-12-08] MEDS: Nicotine 21 MG PATCH.TD24 TD SCH (09:29)
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
[2016-12-08] MEDS: Acetaminophen 325 MG TABLET PO PRN (17:04)
[2016-12-08] MEDS: Gabapentin 300 MG CAPSULE PO SCH (20:35)
[2016-12-08] MEDS ORDERED: clonazePAM 0.5 MG TABLET PO SCH (21:00)
[2016-12-09] MEDS: Gabapentin 300 MG CAPSULE PO SCH (08:47)
[2016-12-09] MEDS: Nicotine 21 MG PATCH.TD24 TD SCH (08:47)
[2016-12-09] MEDS: Venlafaxine XR (24 HR) 150 MG CAP.ER.24H PO SCH (08:47)
[2016-12-09] MEDS ORDERED: (Dextroamphetamine/Amphetamine [Adderall Xr 30 Mg Cap PO SCH (09:00)
--- NOTE | 2016-12-09 10:53 | Psychiatry Progress Note ---
Date of Encounter: 12/09/16 Time of Encounter: 10:25 Subjective Interval history: Patient seen and interviewed. Doing slightly better. Patient is tolerating medication changes fairly well and is not reporting any side effects. Not demonstrating any bad withdrawal symptoms. Slept better. Endorsing hopelessness and helplessness feelings. No safety plan. Encouraged to attend groups and start working on coping skills and safety plan. Review of Systems Psychiatric: Reports: depression, anxiety, difficulty concentrating, hopelessness Objective: Exam Patient orientation: Yes Person, Yes Time, Yes Place Level of alertness: Alert Patient appearance: Unkempt Behavior: nervous, anxious, withdrawn Psychomotor activity: Slowed Eye contact: Minimal Contact Mood description: Depressed, Anxious Affect description: constricted, dysphoric Speech pattern: Normal rate, Normal rhythm, Normal tone Speech volume: Soft/Quiet Thought process: Linear, Goal Oriented Thought content: No Suicidal ideation Perceptual disturbances: No Auditory hallucinations, No Visual hallucinations Judgment: Limited Insight: Minimal (Endorsing hopelessness and helplessness feelings. No safety plan) Results - Vital Signs Vital Signs: Temp Pulse Resp BP Pulse Ox 97.8 F 67 18 108/70 99 12/09/16 09:00 12/09/16 09:00 12/09/16 09:00 12/09/16 09:00 12/08/16 00:31 Assessment and Plan (1) MDD (major depressive disorder), recurrent severe, without psychosis Current visit: No Status: Acute Plan: Continue hospitalization, Close observation, Suicide Precautions per unit protocol, Encourage participation in unit milieu, Group Therapy, Monitor sleep, Monitor appetite Additional Plan: Continue with the Effexor for his depression Risks, benefits, side effects, alternatives discussed w/pt: Yes Patient agreeable to treatment: Yes (2) Anxiety disorder Current visit: No Status: Acute Plan: Continue hospitalization, Close observation, Suicide Precautions per unit protocol, Encourage participation in unit milieu, Group Therapy, Monitor sleep, Monitor appetite Additional Plan: We will increase Neurontin to 800 mg 3 times a day Risks, benefits, side effects, alternatives discussed w/pt: Yes Patient agreeable to treatment: Yes Qualifiers: Anxiety disorder type: unspecified anxiety disorder Qualified Code(s): F41.9 - Anxiety disorder, unspecified Consult Discharge Plan - Plan Referrals: NO,PCP [Primary Care Provider] -
[2016-12-09] MEDS: Gabapentin 400 MG CAPSULE PO SCH ×2 (14:53→21:14)
[2016-12-10] MEDS: Nicotine 21 MG PATCH.TD24 TD SCH (09:37)
[2016-12-10] MEDS: Venlafaxine XR (24 HR) 150 MG CAP.ER.24H PO SCH (09:37)
[2016-12-10] MEDS: Gabapentin 400 MG CAPSULE PO SCH ×3 (09:37→21:22)
--- NOTE | 2016-12-10 12:53 | Psychiatry Progress Note ---
Date of Encounter: 12/10/16 Time of Encounter: 12:30 Subjective Interval history: Agency for follow-up. I reviewed his medication with him and explained benefits and side effects. He denies any side effects at this time. Continue to have med. seeking behavior, was redirectable. He is not presenting any suicidal thoughts or intents. Review of Systems Psychiatric: Reports: depression, anxiety, difficulty concentrating, hopelessness Objective: Exam Patient orientation: Yes Person, Yes Time, Yes Place Level of alertness: Alert Patient appearance: Appropriate, Unkempt, Disheveled Behavior: calm, cooperative, anxious Psychomotor activity: Normal Eye contact: Minimal Contact Mood description: Anxious Affect description: congruent with mood, constricted, dysphoric Speech pattern: Normal rate, Normal rhythm, Normal tone Speech volume: Normal Thought process: Linear, Goal Oriented Thought content: No Suicidal ideation, No Homicidal ideation, No Overt delusions Perceptual disturbances: No Auditory hallucinations, No Visual hallucinations Judgment: Fair Insight: Partial Results - Vital Signs Vital Signs: Temp Pulse Resp BP Pulse Ox 97.8 F 57 16 109/71 99 12/10/16 09:00 12/10/16 09:00 12/10/16 09:00 12/10/16 09:00 12/08/16 00:31 Consult Discharge Plan - Plan Referrals: NO,PCP [Primary Care Provider] -
[2016-12-11] MEDS: Nicotine 21 MG PATCH.TD24 TD SCH (09:03)
[2016-12-11] MEDS: Venlafaxine XR (24 HR) 150 MG CAP.ER.24H PO SCH (09:03)
[2016-12-11] MEDS: Gabapentin 400 MG CAPSULE PO SCH ×3 (09:04→21:49)
--- NOTE | 2016-12-11 15:16 | Psychiatry Progress Note ---
Date of Encounter: 12/11/16 Time of Encounter: 15:00 Subjective Interval history: Patient is seen for follow-up. He reports improved sleep and denies any anxiety. She denies any problems with medication and denies suicidal ideation. He is awaiting placement since he is homeless, marriage and family social worker's work and on finding placement for him. He is not participating in activities and seclusive to his room. Review of Systems Psychiatric: Reports: depression, anxiety, difficulty concentrating, hopelessness Objective: Exam Patient orientation: Yes Person, Yes Time, Yes Place Level of alertness: Alert Patient appearance: Appropriate, Unkempt Behavior: calm, cooperative Psychomotor activity: Normal Eye contact: Avoids Eye Contact Mood description: Depressed, Anxious Affect description: congruent with mood, constricted Speech pattern: Normal rate, Normal rhythm, Normal tone Speech volume: Normal Thought process: Linear, Goal Oriented Thought content: No Suicidal ideation, No Homicidal ideation, No Overt delusions Perceptual disturbances: No Auditory hallucinations, No Visual hallucinations Judgment: Fair Insight: Partial Results - Vital Signs Vital Signs: Temp Pulse Resp BP Pulse Ox 98.2 F 54 16 114/71 99 12/11/16 09:00 12/11/16 09:00 12/11/16 09:00 12/11/16 09:00 12/08/16 00:31 Assessment and Plan (1) Suicidal ideation Current visit: Yes Status: Acute Plan: Continue hospitalization, Close observation, Suicide Precautions per unit protocol, Encourage participation in unit milieu, Group Therapy, Monitor sleep, Monitor appetite Risks, benefits, side effects, alternatives discussed w/pt: Yes Patient agreeable to treatment: Yes Consult Discharge Plan - Plan Referrals: NO,PCP [Primary Care Provider] -
[2016-12-11] MEDS: Acetaminophen 325 MG TABLET PO PRN (21:49)
[2016-12-12] MEDS: Nicotine 21 MG PATCH.TD24 TD SCH (08:43)
[2016-12-12] MEDS: Gabapentin 400 MG CAPSULE PO SCH ×2 (08:43→14:46)
[2016-12-12] MEDS: Venlafaxine XR (24 HR) 150 MG CAP.ER.24H PO SCH (08:43)
[2016-12-12 09:33] VITALS: BP 120/75
--- NOTE | 2016-12-12 14:33 | Discharge Summary ---
Date of Encounter: 12/12/16 Time of Encounter: 14:00 Diagnosis - Discharge Diagnosis (1) Suicidal ideation Status: Acute Medications - Discharge Medications Prescriptions: Buspirone HCl [Buspar] 30 mg PO BID #60 tablet Gabapentin [Neurontin] 800 mg PO TID #60 capsule Quetiapine Fumarate [Seroquel] 50 mg PO HS PRN #30 tablet PRN Reason: Insomnia Venlafaxine XR (24 HR) [Effexor Xr] 150 mg PO DAILY #30 cap.er.24h Buspirone HCl [Buspar] 30 mg PO BID #60 tablet 12/12/16 [Rx] Gabapentin [Neurontin] 800 mg PO TID #60 capsule 12/12/16 [Rx] Quetiapine Fumarate [Seroquel] 50 mg PO HS PRN #30 tablet 12/12/16 [Rx] Venlafaxine XR (24 HR) [Effexor Xr] 150 mg PO DAILY #30 cap.er.24h 12/12/16 [Rx] Allergies No Known Allergies Allergy (Verified 02/19/15 05:45) Provider Date of admission: 12/08/16 03:13 Primary care physician: PCP ASHLEE Discharging clinician: Alonzo Elliott Assessment and Plan - Patient/Caregiver Discharge Instructions Activity: resume usual activities as tolerated Diet: regular diet - Follow up Plan Follow up with: ASHLEE,PCP [Primary Care Provider] - Functional capacity at discharge: independent ambulation Overall status at discharge: Stable Disposition: Home, Self-Care Hospital Course Hospital course: Mr. Yang is a 31 year old male admitted from the emergency room for suicidal ideation. For details of admission please see H&P On the unit patient medication were adjusted including Effexor, BuSpar and Seroquel. Patient tolerated this medication and responded positively and reported improved sleep and his depression improved and denies any withdrawal symptoms. He was isolating in his room and did not participate in group activities. He displays some med seeking behavior that was redirected and he was agreeable to the treatment plan. His discharge plans were completed by socially responsible investment adviser and he is discharged in stable condition nonsuicidal and future oriented. - Time Spent with Patient Total time spent providing and/or coordinating discharge services: Less than 30 minutes Quality - Multiple Antipsychotics Patient discharged on 2 or more antipsychotic medications: No Procedures - Procedures Procedures: Medication Management, Crisis Stabilization, Supportive Therapy, Group Therapy, Psychoeducational Therapy Mental Status Exam - Mental Status Exam Patient orientation: Yes Person, Yes Time, Yes Place Level of alertness: Alert Patient appearance: Appropriate, Disheveled Behavior: calm, cooperative Psychomotor activity: Normal Eye contact: Minimal Contact Mood description: Euthymic/stable, Anxious Affect description: congruent with mood, full range Speech pattern: Normal rate, Normal rhythm, Normal tone Speech Volume: Normal Thought process: Linear, Goal Oriented Thought Content: No Suicidal ideation, No Homicidal ideation, No Overt delusions Perceptual Disturbances: No Auditory hallucinations, No Visual hallucinations Judgment: Limited Insight: Partial
== END 2016-12-12 17:00 | disposition home or self-care (01) | DRG 885 ==
LOC: EMEROO 00:30 → SUATTDRO 03:13 → 1ANU 03:13
PROVIDERS: ADMIT Psychiatry & Neurology Psychiatry; ATTEND Psychiatry & Neurology Psychiatry

== ENCOUNTER 2017-03-08 12:28 | Inpatient (IN) ==
--- NOTE | 2017-03-08 12:46 | Emergency Department Note ---
Disposition Clinical Impression: Suicidal ideation Disposition: Admitted As Inpatient Referrals: NONE,PCP [Primary Care Provider] - Forms: ED Satisfaction Letter Psych HPI - General Chief Complaint: ED Psychiatric Symptoms Stated Complaint: SI Time Seen by Provider: 03/08/17 12:36 Source: patient Mode of arrival: EMS Limitations: no limitations Nursing Notes Reviewed: Yes Vital Signs Reviewed: Yes - History of Present Illness Pt complaint: suicidal ideation, feels depressed Duration: constant History of similar episodes: Yes Improves with: none Worsens with: none Alleged intoxication: No Associated Psychiatric Symptoms: depression, suicidal ideation Traumatic symptoms: denies traumatic injury Treatments prior to arrival: none Self harm or harm to others: admits thoughts of self harm, has acted on plan - Related Data Home Medications Medication Instructions Recorded Confirmed HydrOXYzine Pamoate [Vistaril] 50 mg PO TID 03/04/17 03/04/17 Aripiprazole [Abilify] 10 mg PO DAILY 03/08/17 03/08/17 Quetiapine Fumarate [Seroquel] 200 mg PO HS 03/08/17 03/08/17 Previous Rx's Medication Instructions Recorded Buspirone HCl [Buspar] 30 mg PO BID #60 tablet 12/12/16 Gabapentin [Neurontin] 800 mg PO TID #60 capsule 12/12/16 Venlafaxine XR (24 HR) [Effexor Xr] 150 mg PO DAILY #30 cap.er.24h 12/12/16 Allergies Allergy/AdvReac Type Severity Reaction Status Date / Time No Known Allergies Allergy Verified 03/08/17 11:39 All systems ED: reviewed and negative except as stated. Constitutional: Denies: fever, chills, weakness Cardiovascular: Denies: chest pain, palpitations Gastrointestinal: Denies: abdominal pain, nausea Past Medical History - Past Medical History Source: patient, old records reviewed, nursing notes reviewed Medical history: Reports: non-contributory Surgical history: Reports: non-contributory Psychiatric history: Reports: anxiety, bipolar, depression, schizophrenia, previous psychiatric hospitalization - Social History Smoking Status: Current every day smoker Smokeless Tobacco Status: No Alcohol use: Reports: none Drug use: Reports: marijuana, IV Drug Use, prescription drug abuse Physical Exam - General Limitations: no limitations General appearance: alert, in no apparent distress - Head Head exam: atraumatic, normocephalic, normal inspection - Eye Eye exam: Present: normal appearance, PERRL, EOMI - Expanded Eye Exam Pupils: Left: reactive - ENT ENT exam: normal exam, normal oropharynx, mucous membranes moist - Expanded ENT Exam External ear exam: Present: normal external inspection Mouth exam: Present: normal external inspection Teeth exam: Present: normal inspection Throat exam: Present: normal inspection - Neck Neck exam: Present: normal inspection, full ROM, trachea midline - Chest Chest inspection: Present: normal inspection, symmetric chest wall rise - Respiratory Respiratory exam: Present: normal lung sounds bilaterally - Cardiovascular Cardiovascular exam: Present: regular rate, normal rhythm, normal heart sounds - Abdominal Exam Abdominal exam: Present: soft, Non-Tender. Absent: tenderness, distention, guarding, rebound, rigidity - Extremities Exam Extremities exam: Present: normal inspection, full ROM. Absent: tenderness, pedal edema - Expanded Upper Extremity Exam Shoulder exam: Present: normal inspection, full ROM Arm exam: Present: normal inspection, full ROM Elbow exam: Present: normal inspection, full ROM Forearm/Wrist exam: Present: normal inspection, full ROM Hand exam: Present: normal inspection, full ROM Vascular exam: Normal: capillary refill, radial pulse - Expanded Lower Extremity Exam Hip/Pelvis exam: Present: normal inspection, full ROM Upper leg exam: Present: normal inspection, full ROM Knee exam: Present: normal inspection, full ROM Lower leg exam: Present: normal inspection, full ROM Ankle exam: Present: normal inspection, full ROM Foot/toe exam: Present: normal inspection, full ROM Neurovascular/Tendon exam: Absent: motor deficit, sensory deficit, tendon deficit - Back Exam Back exam: Present: normal inspection, full ROM. Absent: tenderness - Neurological Exam Neurological exam: Present: alert, oriented X3 - Expanded Neurological Exam Patient oriented to: Present: person, place, time Coma Scale Eye Opening: Spontaneous Coma Scale Motor Response: Obeys Commands Coma Scale Verbal Response: Oriented Coma Scale Total: 15 - Psychiatric Psychiatric exam: Present: normal affect, normal mood - Skin Skin exam: Present: warm, dry, intact, normal color Course Vital Signs Temperature 97.7 F 03/08/17 12:30 Pulse Rate 67 03/08/17 12:30 Respiratory Rate 18 03/08/17 12:30 Blood Pressure 142/87 03/08/17 12:30 O2 Sat by Pulse Oximetry 97 03/08/17 12:30 Temperature 97.7 F 03/08/17 12:30 Pulse Rate 67 03/08/17 12:30 Respiratory Rate 18 03/08/17 12:30 Blood Pressure 142/87 03/08/17 12:30 O2 Sat by Pulse Oximetry 97 03/08/17 12:30 Oxygen Delivery Oxygen Delivery Room Air Psych - Lab Data Result diagrams: 03/08/17 12:49 03/08/17 12:49 Lab Results 03/08/17 03/08/17 03/08/17 Range/Units 12:49 12:49 14:40 WBC 8.1 (4.3-11.1) K/mcL RBC 4.52 (4.19-5.50) M/mcL Hgb 13.7 (12.9-16.9) g/dL Hct 40.4 (37.5-50.1) % MCV 89.4 (83.0-100.0) fL MCH 30.3 (28.0-33.3) pg MCHC 33.9 (31.6-35.5) g/dL RDW 13.4 (11.5-14.5) % Plt Count 475 H (140-400) K/mcL MPV 8.9 L (9.4-12.4) fL Immature Gran % 0.4 (0-4) % Seg Neutrophils % 57.2 % Lymphocytes % 34.2 % Monocytes % 5.8 % Eosinophils % 1.9 % Basophils % 0.5 % Neutrophils # 4.6 (1.6-8.9) K/mcL Lymphocytes # 2.8 (0.6-4.6) K/mcL Monocytes # 0.5 (0.0-1.3) K/mcL Eosinophils # 0.2 (0.0-0.6) K/mcL Basophils # 0.0 (0.0-0.2) K/mcL Sodium 138 (136-145) mEq/L Potassium 4.2 (3.5-4.5) mEq/L Chloride 106 (98-109) mEq/L Carbon Dioxide 27 (19-29) mEq/L BUN 8 (8-26) mg/dL Creatinine 0.72 (0.72-1.25) mg/dL Est GFR ( Amer) > 60 (> 60) Est GFR (Non-Af Amer) > 60 (> 60) BUN/Creatinine Ratio 11 (6-26) Glucose 95 (70-99) mg/dL Calculated Osmolality 284 (280-300) Calcium 9.0 (8.6-10.8) mg/dL Urine Color Yellow (Yellow) Urine Clarity Clear (Clear) Urine pH 6.0 (5.0-8.0) pH Units Ur Specific [place] 1.028 H (1.010-1.025) Urine Protein Negative (Neg-Trace) mg/dL Urine Glucose (UA) Normal (Normal) mg/dL Urine Ketones Negative (Negative) mg/dL Urine Blood Negative (Negative) Urine Nitrite Negative (Negative) Urine Bilirubin Negative (Negative) Urine Urobilinogen Normal (Normal) mg/dL Ur Leukocyte Esterase Negative (Negative) Salicylates < 5.0 L (15-30) mg/dL Urine Opiates Screen (Nnjtwg=118) ng/mL Acetaminophen < 1.0 L (10-30) mcg/mL Ur Barbiturates Screen (Zolnzd=994) ng/mL Ur Phencyclidine Scrn (Cutoff=25) ng/mL Ur Amphetamines Screen (Xdhfgz=7851) ng/mL U Benzodiazepines Scrn (Zxgant=756) ng/mL Urine Cocaine Screen (Cutoff= 300) ng/mL U Marijuana (THC) Screen (Cutoff = 50) ng/mL Ethyl Alcohol < 10 (0-10) mg/dL 03/08/17 Range/Units 14:40 WBC (4.3-11.1) K/mcL RBC (4.19-5.50) M/mcL Hgb (12.9-16.9) g/dL Hct (37.5-50.1) % MCV (83.0-100.0) fL MCH (28.0-33.3) pg MCHC (31.6-35.5) g/dL RDW (11.5-14.5) % Plt Count (140-400) K/mcL MPV (9.4-12.4) fL Immature Gran % (0-4) % Seg Neutrophils % % Lymphocytes % % Monocytes % % Eosinophils % % Basophils % % Neutrophils # (1.6-8.9) K/mcL Lymphocytes # (0.6-4.6) K/mcL Monocytes # (0.0-1.3) K/mcL Eosinophils # (0.0-0.6) K/mcL Basophils # (0.0-0.2) K/mcL Sodium (136-145) mEq/L Potassium (3.5-4.5) mEq/L Chloride (98-109) mEq/L Carbon Dioxide (19-29) mEq/L BUN (8-26) mg/dL Creatinine (0.72-1.25) mg/dL Est GFR ( Amer) (> 60) Est GFR (Non-Af Amer) (> 60) BUN/Creatinine Ratio (6-26) Glucose (70-99) mg/dL Calculated Osmolality (280-300) Calcium (8.6-10.8) mg/dL Urine Color (Yellow) Urine Clarity (Clear) Urine pH (5.0-8.0) pH Units Ur Specific [place] (1.010-1.025) Urine Protein (Neg-Trace) mg/dL Urine Glucose (UA) (Normal) mg/dL Urine Ketones (Negative) mg/dL Urine Blood (Negative) Urine Nitrite (Negative) Urine Bilirubin (Negative) Urine Urobilinogen (Normal) mg/dL Ur Leukocyte Esterase (Negative) Salicylates (15-30) mg/dL Urine Opiates Screen Negative (Xcjnks=444) ng/mL Acetaminophen (10-30) mcg/mL Ur Barbiturates Screen Negative (Vtcmha=213) ng/mL Ur Phencyclidine Scrn Negative (Cutoff=25) ng/mL Ur Amphetamines Screen Negative (Onrefs=1714) ng/mL U Benzodiazepines Scrn Negative (Ebaivh=375) ng/mL Urine Cocaine Screen Negative (Cutoff= 300) ng/mL U Marijuana (THC) Screen Negative (Cutoff = 50) ng/mL Ethyl Alcohol (0-10) mg/dL Psychiatric Medical Clearance - Medical Clearance Checklist Medical History: No Social History Section defined Current Vitals: Last Vital Signs Temp 97.7 F 03/08/17 12:30 Pulse 67 03/08/17 12:30 Resp 18 03/08/17 12:30 BP 142/87 03/08/17 12:30 Pulse Ox 97 03/08/17 12:30 Psychiatric Lab Panel: Drug Levels and Toxicity 03/08/17 03/08/17 12:49 14:40 Urine Opiates Screen Negative Acetaminophen < 1.0 L Ur Barbiturates Screen Negative Ur Phencyclidine Scrn Negative Ur Amphetamines Screen Negative U Benzodiazepines Scrn Negative Urine Cocaine Screen Negative U Marijuana (THC) Screen Negative Ethyl Alcohol < 10 Abnormal Labs: Abnormal lab results Plt Count 475 K/mcL (140-400) H 03/08/17 12:49 MPV 8.9 fL (9.4-12.4) L 03/08/17 12:49 Ur Specific [place] 1.028 (1.010-1.025) H 03/08/17 14:40 Salicylates < 5.0 mg/dL (15-30) L 03/08/17 12:49 Acetaminophen < 1.0 mcg/mL (10-30) L 03/08/17 12:49 Statement of Medical Clearance: I have evaluated the patient, reviewed diagnostic information, and certify that the patient's medical condition is sufficiently stable that transfer to the psychiatric unit does not pose a significant risk of deterioration.
[2017-03-08 13:00] LABS: Basophils % 0.5 %; Eosinophils # 0.2 K/mcL (0.0-0.6); Eosinophils % 1.9 %; Hematocrit 40.4 % (37.5-50.1); Hemoglobin 13.7 g/dL (12.9-16.9); Immature Granulocytes % 0.4 % (0-4); Lymphocytes # 2.8 K/mcL (0.6-4.6); Lymphocytes % 34.2 %; Mean Corpuscular HGB Conc 33.9 g/dL (31.6-35.5); Mean Corpuscular Hemoglobin 30.3 pg (28.0-33.3); Mean Corpuscular Volume 89.4 fL (83.0-100.0); Mean Platelet Volume 8.9 fL (9.4-12.4); Monocytes # 0.5 K/mcL (0.0-1.3); Monocytes % 5.8 %; Neutrophils # 4.6 K/mcL (1.6-8.9); Platelet Count 475 K/mcL (140-400); Red Blood Count 4.52 M/mcL (4.19-5.50); Red Cell Distribution Width 13.4 % (11.5-14.5); Segmented Neutrophils % 57.2 %
[2017-03-08 13:14] LABS: BUN/Creatinine Ratio 11 (6-26); Blood Urea Nitrogen 8 mg/dL (8-26); Carbon Dioxide 27 mEq/L (19-29); Chloride 106 mEq/L (98-109); Glucose 95 mg/dL (70-99); Osmolality,Calculated 284 (280-300); Potassium 4.2 mEq/L (3.5-4.5); Sodium 138 mEq/L (136-145); eGFR For African Americans > 60 (> 60); eGFR For Non-African Americans > 60 (> 60)
[2017-03-08 13:17] LABS: Acetaminophen < 1.0 mcg/mL (10-30); Ethanol < 10 mg/dL (0-10); Salicylate < 5.0 mg/dL (15-30)
[2017-03-08 14:53] LABS: Bilirubin,Urine Negative (Negative); Blood,Urine Negative (Negative); Clarity,Urine Clear (Clear); Color,Urine Yellow (Yellow); Glucose,Urine (UA) Normal (Normal); Ketones,Urine Negative (Negative); Leukocyte Esterase,Urine Negative (Negative); Nitrite,Urine Negative (Negative); Protein,Urine Negative (Neg-Trace); Specific Gravity,Urine 1.028 (1.010-1.025); Urobilinogen,Urine Normal (Normal)
[2017-03-08 15:00] LABS: Amphetamine Screen,Urine Negative ng/mL (Cutoff=1000); Barbiturate Screen,Urine Negative ng/mL (Cutoff=200); Benzodiazepines Screen,Urine Negative ng/mL (Cutoff=200); Cannabinoid Screen,Urine Negative ng/mL (Cutoff = 50); Cocaine Screen,Urine Negative ng/mL (Cutoff= 300); Opiate Screen,Urine Negative ng/mL (Cutoff=300); Phencyclidine Screen,Urine Negative ng/mL (Cutoff=25)
[2017-03-08] MEDS ORDERED: Ibuprofen 400 MG TABLET PO PRN (16:48)
[2017-03-08] MEDS ORDERED: hydrOXYzine pamoate 25 MG CAPSULE PO PRN (16:48)
[2017-03-08] MEDS ORDERED: Haloperidol Lactate 5 MG/ML VIAL IM PRN (16:48)
[2017-03-08] MEDS ORDERED: traZODone 50 MG TABLET PO PRN (16:48)
[2017-03-08] MEDS ORDERED: Mag Hydrox/Al Hydrox/Simeth 30 ML UDC PO PRN (16:48)
[2017-03-08] MEDS ORDERED: *HR* LORazepam 1 MG TABLET PO PRN (16:48)
[2017-03-08] MEDS ORDERED: *HR* LORazepam 2 MG/ML VIAL IM PRN (16:48)
[2017-03-08] MEDS ORDERED: MOM Conc 10 ML UD.LIQ PO PRN (16:48)
[2017-03-08] MEDS: Nicotine 21 MG PATCH.TD24 TD SCH (18:40)
[2017-03-08] MEDS: hydrOXYzine pamoate 25 MG CAPSULE PO SCH (20:27)
[2017-03-08] MEDS: Gabapentin 300 MG CAPSULE PO SCH (20:28)
[2017-03-09] MEDS ORDERED: Venlafaxine XR (24 HR) 150 MG CAP.ER.24H PO SCH (09:00)
[2017-03-09] MEDS: ARIPiprazole 10 MG TABLET PO SCH (09:28)
[2017-03-09] MEDS: Gabapentin 300 MG CAPSULE PO SCH (09:29)
[2017-03-09] MEDS: hydrOXYzine pamoate 25 MG CAPSULE PO SCH ×3 (09:29→21:14)
[2017-03-09] MEDS: Nicotine 21 MG PATCH.TD24 TD SCH (09:30)
--- NOTE | 2017-03-09 12:20 | Psychiatry History & Physical ---
Date of Encounter: 03/09/17 Time of Encounter: 12:20 History of Present Illness Patient Stated Chief Complaint: I am depressed and suicidal Medicare Admission Attestation: For traditional Medicare patients the provided hospital inpatient services are reasonable and necessary and in the case of services not specified as inpatient -only under 42 CFR 419.22 (n), that they are appropriately provided as inpatient services in accordance 42 CFR 412.3. For Critical Access Hospital the patient may reasonably be expected to be discharged or transferred to a hospital within 96 hours after admission to the Critical Access Hospital. Admitted From: Emergency Dept Plans for Post Hospital Care: Home History of Present Illness: Mr. Yang is a 31 year old male Who is well known to us from prior hospitalization. He is noted to have a history of depression. Patient reported that he has been doing fine up until 2 weeks ago when he started to notice a relapse of depression. He reported that his ongoing stressors included his housing situation and he is currently residing at a [facility]. He also reported a lack of support from his family which is contributing to depression. He endorsed low mood and anhedonia hopeless helpless feelings crying and weeping spells and low energy levels and recurrent suicidal thoughts and ideations. Patient brought himself to the emergency and reported that he is feeling suicidal and was unable to contract for safety and she was posing a threat to himself it was decided to hospitalize him at [address] Past Med Surg Social Fam HX - Past Medical History Medical history: non-contributory - Past Psychiatric History Psychiatric history: Reports: depression, previous psychiatric hospitalization Past psychiatric history details: Patient does have a history of anxiety depression and substance abuse. He has had multiple prior psychiatric hospitalizations. His last hospitalization was back in November 2016. Is currently receiving outpatient treatment. He reportedly has been compliant with his medications. Family psychiatric history: Yes Family Psychiatric History Details: Uncle and aunt suffers from depression and anxiety. Aunt has attempted suicide in the past. Family History of Suicide: Attempted - Past Surgical History Surgical History: non-contributory - Social History Smoking Status: Current every day smoker Smokeless Tobacco Status: No Alcohol use: none Drug use: marijuana, IV Drug Use, prescription drug abuse Additional substance use detail: Patient reportedly has been sober from drugs for the last few months. His urine drug screen was negative Occupational status: unemployed Current living situation: Other Activity Level: Independent ambulation Recent Out of Country Travel Within the Last 8 Weeks: No Exposure or Possible Exposure to Illness During Travel: No Additional social history: Patient is and is currently residing at a [facility]. He has an 18-year-old daughter. He is currently denying any legal issues. Medications & Allergies Buspirone HCl [Buspar] 30 mg PO BID #60 tablet 12/12/16 [Rx] Venlafaxine XR (24 HR) [Effexor Xr] 150 mg PO DAILY #30 cap.er.24h 12/12/16 [Rx] HydrOXYzine Pamoate [Vistaril] 50 mg PO TID 03/04/17 [History] Aripiprazole [Abilify] 10 mg PO DAILY 03/08/17 [History] Dicyclomine [Bentyl] 10 mg PO TID 03/08/17 [History] Gabapentin [Neurontin] 600 mg PO TID 03/08/17 [History] Omeprazole [PriLOSEC] 20 mg PO DAILY 03/08/17 [History] Quetiapine Fumarate [Seroquel] 200 mg PO HS 03/08/17 [History] Zolpidem Tartrate [Zolpidem Tartrate] 5 mg PO HS 03/08/17 [History] 3 Allergy/AdvReac Type Severity Reaction Status Date / Time No Known Allergies Allergy Verified 03/08/17 11:39 Review of Systems Psychiatric: Reports: depression, suicidal ideation, anhedonia, hopelessness Mental Status Exam Patient orientation: Yes Person, Yes Time, Yes Place Level of alertness: Alert Patient appearance: Unkempt, Disheveled Behavior: nervous, anxious Psychomotor activity: Slowed Eye contact: Maintains Eye Contact Mood description: Depressed, Anxious Affect description: congruent with mood Speech pattern: Normal rate, Normal rhythm, Normal tone Speech volume: Soft/Quiet Thought process: Linear, Goal Oriented Thought content: Yes Suicidal ideation Perceptual disturbances: No Auditory hallucinations, No Visual hallucinations Attention span: Capable of Focused Attention Memory description: Grossly Intact Patient reliability: Reliable Historian Intelligence estimate: Average Judgment: Fair Insight: Partial Exam - HEENT Head exam IM: Present: normal inspection Eye exam IM: Present: normal appearance ENT exam IM: Present: normal exam - Neurological Neurological exam IM: Present: alert, CN II-XII intact, normal gait, oriented X3 , reflexes normal, no focal deficits, strengths equal and symetr throughout - Respiratory Respiratory exam IM: Absent: respiratory distress, rhonchi, wheezes - GI/Abdominal GI/Abdominal exam IM: Present: normal bowel sounds, soft - Extremities Extremities exam IM: Present: full ROM, normal inspection - Skin Skin exam IM: Present: normal color Results - Vital Signs Vital signs: Temp Pulse Resp BP Pulse Ox 98.0 F 81 16 118/79 97 03/09/17 09:00 03/09/17 09:00 03/09/17 09:00 03/09/17 09:00 03/08/17 12:30 - Labs Labs: Laboratory Last Values WBC 8.1 K/mcL (4.3-11.1) 03/08/17 12:49 RBC 4.52 M/mcL (4.19-5.50) 03/08/17 12:49 Hgb 13.7 g/dL (12.9-16.9) 03/08/17 12:49 Hct 40.4 % (37.5-50.1) 03/08/17 12:49 MCV 89.4 fL (83.0-100.0) 03/08/17 12:49 MCH 30.3 pg (28.0-33.3) 03/08/17 12:49 MCHC 33.9 g/dL (31.6-35.5) 03/08/17 12:49 RDW 13.4 % (11.5-14.5) 03/08/17 12:49 Plt Count 475 K/mcL (140-400) H 03/08/17 12:49 MPV 8.9 fL (9.4-12.4) L 03/08/17 12:49 Immature Gran % 0.4 % (0-4) 03/08/17 12:49 Seg Neutrophils % 57.2 % 03/08/17 12:49 Lymphocytes % 34.2 % 03/08/17 12:49 Monocytes % 5.8 % 03/08/17 12:49 Eosinophils % 1.9 % 03/08/17 12:49 Basophils % 0.5 % 03/08/17 12:49 Neutrophils # 4.6 K/mcL (1.6-8.9) 03/08/17 12:49 Lymphocytes # 2.8 K/mcL (0.6-4.6) 03/08/17 12:49 Monocytes # 0.5 K/mcL (0.0-1.3) 03/08/17 12:49 Eosinophils # 0.2 K/mcL (0.0-0.6) 03/08/17 12:49 Basophils # 0.0 K/mcL (0.0-0.2) 03/08/17 12:49 Sodium 138 mEq/L (136-145) 03/08/17 12:49 Potassium 4.2 mEq/L (3.5-4.5) 03/08/17 12:49 Chloride 106 mEq/L (98-109) 03/08/17 12:49 Carbon Dioxide 27 mEq/L (19-29) 03/08/17 12:49 BUN 8 mg/dL (8-26) 03/08/17 12:49 Creatinine 0.72 mg/dL (0.72-1.25) 03/08/17 12:49 Est GFR ( Amer) > 60 (> 60) 03/08/17 12:49 Est GFR (Non-Af Amer) > 60 (> 60) 03/08/17 12:49 BUN/Creatinine Ratio 11 (6-26) 03/08/17 12:49 Glucose 95 mg/dL (70-99) 03/08/17 12:49 Calculated Osmolality 284 (280-300) 03/08/17 12:49 Calcium 9.0 mg/dL (8.6-10.8) 03/08/17 12:49 Urine Color Yellow (Yellow) 03/08/17 14:40 Urine Clarity Clear (Clear) 03/08/17 14:40 Urine pH 6.0 pH Units (5.0-8.0) 03/08/17 14:40 Ur Specific [place] 1.028 (1.010-1.025) H 03/08/17 14:40 Urine Protein Negative mg/dL (Neg-Trace) 03/08/17 14:40 Urine Glucose (UA) Normal mg/dL (Normal) 03/08/17 14:40 Urine Ketones Negative mg/dL (Negative) 03/08/17 14:40 Urine Blood Negative (Negative) 03/08/17 14:40 Urine Nitrite Negative (Negative) 03/08/17 14:40 Urine Bilirubin Negative (Negative) 03/08/17 14:40 Urine Urobilinogen Normal mg/dL (Normal) 03/08/17 14:40 Ur Leukocyte Esterase Negative (Negative) 03/08/17 14:40 Salicylates < 5.0 mg/dL (15-30) L 03/08/17 12:49 Urine Opiates Screen Negative ng/mL (Pbupvd=418) 03/08/17 14:40 Acetaminophen < 1.0 mcg/mL (10-30) L 03/08/17 12:49 Ur Barbiturates Screen Negative ng/mL (Kskmcx=064) 03/08/17 14:40 Ur Phencyclidine Scrn Negative ng/mL (Cutoff=25) 03/08/17 14:40 Ur Amphetamines Screen Negative ng/mL (Ianlqr=0025) 03/08/17 14:40 U Benzodiazepines Scrn Negative ng/mL (Avjite=429) 03/08/17 14:40 Urine Cocaine Screen Negative ng/mL (Cutoff= 300) 03/08/17 14:40 U Marijuana (THC) Screen Negative ng/mL (Cutoff = 50) 03/08/17 14:40 Ethyl Alcohol < 10 mg/dL (0-10) 03/08/17 12:49 Assessment and Plan (1) MDD (major depressive disorder), recurrent severe, without psychosis Current visit: No Status: Acute Plan: Admit inpatient for safety and stabilization, Close observation, Suicide Precautions per unit protocol, Encourage participation in unit milieu, Group Therapy, Monitor sleep, Monitor appetite Additional Plan: After reviewing the symptom diagnoses and treatment plan and explaining the risk benefit side effects alternative to treatment and consequences of no treatment and after getting informed consent for the patient it was decided to purchase the patient medications as follows. We will increase patient's Effexor to 225 mg daily for his depression. We will continue patient's BuSpar 30 mg twice a day Abilify and Seroquel will be continued on their current doses as adjunct treatment for depression and insomnia. We will increase patient's Neurontin to 800 mg 3 times a day for anxiety restlessness Risks, benefits, side effects, alternatives discussed w/pt: Yes Patient agreeable to treatment: Yes Plans for Post Hospital Care: Home Estimated Length of Stay (Days): 3
[2017-03-09] MEDS: Gabapentin 400 MG CAPSULE PO SCH ×2 (15:43→21:14)
[2017-03-10] MEDS: Nicotine 21 MG PATCH.TD24 TD SCH (09:21)
[2017-03-10] MEDS: Gabapentin 400 MG CAPSULE PO SCH ×3 (09:22→20:21)
[2017-03-10] MEDS: ARIPiprazole 10 MG TABLET PO SCH (09:22)
[2017-03-10] MEDS: Venlafaxine XR (24 HR) 75 MG CAP.ER.24H PO SCH (09:23)
[2017-03-10] MEDS: hydrOXYzine pamoate 25 MG CAPSULE PO SCH ×3 (09:24→20:21)
--- NOTE | 2017-03-10 11:24 | Psychiatry Progress Note ---
Date of Encounter: 03/10/17 Time of Encounter: 11:23 Subjective Interval history: Patient seen and interviewed. He started to notice improvement in his mood. Still endorsing some hopelessness helplessness anxiety and restlessness. Suicidal ideations of started to subside. Responding well to the medications and is tolerating them. Sleep and appetite improved. Encouraged to attend groups and participate in activities and start working on a safety plan. Review of Systems Psychiatric: Reports: depression, anhedonia, hopelessness Objective: Exam Patient orientation: Yes Person, Yes Time, Yes Place Level of alertness: Alert Patient appearance: Unkempt, Disheveled Behavior: nervous, anxious Psychomotor activity: Normal Eye contact: Maintains Eye Contact Mood description: Depressed, Anxious Affect description: constricted, dysphoric Speech pattern: Normal rate, Normal rhythm, Normal tone Speech volume: Normal Thought process: Linear, Goal Oriented Thought content: No Suicidal ideation, No Homicidal ideation, No Overt delusions Perceptual disturbances: No Auditory hallucinations, No Visual hallucinations Judgment: Fair Insight: Partial Results - Vital Signs Vital Signs: Temp Pulse Resp BP Pulse Ox 97.5 F L 84 16 124/79 97 03/10/17 09:00 03/10/17 09:00 03/10/17 09:00 03/10/17 09:00 03/08/17 12:30 Assessment and Plan (1) MDD (major depressive disorder), recurrent severe, without psychosis Current visit: No Status: Acute Plan: Continue hospitalization, Close observation, Suicide Precautions per unit protocol, Encourage participation in unit milieu, Group Therapy, Monitor sleep, Monitor appetite Risks, benefits, side effects, alternatives discussed w/pt: Yes Patient agreeable to treatment: Yes Consult Discharge Plan - Plan Referrals: NONE,PCP [Primary Care Provider] -
[2017-03-11] MEDS: ARIPiprazole 10 MG TABLET PO SCH (09:58)
[2017-03-11] MEDS: hydrOXYzine pamoate 25 MG CAPSULE PO SCH ×3 (10:00→20:11)
[2017-03-11] MEDS: Venlafaxine XR (24 HR) 75 MG CAP.ER.24H PO SCH (10:02)
[2017-03-11] MEDS: Nicotine 21 MG PATCH.TD24 TD SCH (10:02)
[2017-03-11] MEDS: Gabapentin 400 MG CAPSULE PO SCH ×3 (10:02→20:10)
--- NOTE | 2017-03-11 12:52 | Psychiatry Progress Note ---
Date of Encounter: 03/11/17 Time of Encounter: 12:10 Subjective Interval history: Patient is seen for follow-up with nursing staff. His seclusive to his room most of the time. He is tolerating his medication and denies any side effects. He complained of anxiety and suicidal thoughts but denied any intent to self- harm. He is concerned about his homelessness and his access to outpatient care. Review of Systems Psychiatric: Reports: depression, anhedonia, hopelessness Objective: Exam Patient orientation: Yes Person, Yes Time, Yes Place Level of alertness: Alert Patient appearance: Appropriate, Unkempt, Bizarre Behavior: cooperative, nervous, anxious, withdrawn Psychomotor activity: Slowed Eye contact: Minimal Contact Mood description: Depressed, Anxious Affect description: congruent with mood, constricted Speech pattern: Normal rate, Normal rhythm, Normal tone Speech volume: Soft/Quiet Thought process: Linear, Goal Oriented Thought content: No Suicidal ideation, No Homicidal ideation, No Overt delusions Perceptual disturbances: No Auditory hallucinations, No Visual hallucinations Judgment: Fair Insight: Partial Results - Vital Signs Vital Signs: Temp Pulse Resp BP Pulse Ox 97.8 F 67 16 130/81 97 03/11/17 09:00 03/11/17 09:00 03/11/17 09:00 03/11/17 09:00 03/08/17 12:30 Assessment and Plan (1) Bipolar disorder Current visit: No Status: Acute Plan: Continue hospitalization, Close observation, Suicide Precautions per unit protocol, Encourage participation in unit milieu, Group Therapy, Monitor sleep, Monitor appetite Risks, benefits, side effects, alternatives discussed w/pt: Yes Patient agreeable to treatment: Yes Qualifiers: Active/Remission status: currently active Psychotic features: with psychotic features Qualified Code(s): F31.64 - Bipolar disorder, current episode mixed, severe, with psychotic features Consult Discharge Plan - Plan Referrals: NONE,PCP [Primary Care Provider] -
[2017-03-12] MEDS: Nicotine 21 MG PATCH.TD24 TD SCH (09:17)
[2017-03-12] MEDS: hydrOXYzine pamoate 25 MG CAPSULE PO SCH (09:17)
[2017-03-12] MEDS: Venlafaxine XR (24 HR) 75 MG CAP.ER.24H PO SCH (09:17)
[2017-03-12] MEDS: Gabapentin 400 MG CAPSULE PO SCH (09:17)
[2017-03-12] MEDS: ARIPiprazole 10 MG TABLET PO SCH (09:17)
[2017-03-12 09:52] VITALS: BP 119/76
--- NOTE | 2017-03-12 14:17 | Discharge Summary ---
Date of Encounter: 03/12/17 Time of Encounter: 14:15 Diagnosis - Discharge Diagnosis (1) Severe recurrent major depression without psychotic features Status: Acute Medications - Discharge Medications Prescriptions: Aripiprazole [Abilify] 10 mg PO DAILY #30 tab-cap Buspirone HCl [Buspar] 30 mg PO BID #60 tablet Gabapentin [Neurontin] 600 mg PO TID #90 HydrOXYzine Pamoate [Vistaril] 50 mg PO TID #90 Omeprazole [PriLOSEC] 20 mg PO DAILY #30 Quetiapine Fumarate [Seroquel] 200 mg PO HS #30 Venlafaxine XR (24 HR) [Effexor XR] 225 mg PO DAILY #90 Dicyclomine [Bentyl] 10 mg PO TID 03/08/17 [History] Zolpidem Tartrate 5 mg PO HS 03/08/17 [History] Aripiprazole [Abilify] 10 mg PO DAILY #30 tab-cap 03/12/17 [Rx] Buspirone HCl [Buspar] 30 mg PO BID #60 tablet 03/12/17 [Rx] Gabapentin [Neurontin] 600 mg PO TID #90 03/12/17 [Rx] HydrOXYzine Pamoate [Vistaril] 50 mg PO TID #90 03/12/17 [Rx] Omeprazole [PriLOSEC] 20 mg PO DAILY #30 03/12/17 [Rx] Quetiapine Fumarate [Seroquel] 200 mg PO HS #30 03/12/17 [Rx] Venlafaxine XR (24 HR) [Effexor XR] 225 mg PO DAILY #90 03/12/17 [Rx] 3 Allergy/AdvReac Type Severity Reaction Status Date / Time No Known Allergies Allergy Verified 03/08/17 11:39 Provider Date of admission: 03/08/17 15:32 Primary care physician: PCP NONE Discharging clinician: Alonzo Elliott Assessment and Plan - Patient/Caregiver Discharge Instructions Activity: resume usual activities as tolerated Diet: regular diet - Follow up Plan Follow up with: [facility] [Outside] - 03/14/17 11:00 am (The above appointment is with Avery Comer for outpatient psychiatric assessment and medication management services. You will also see your counselor, Gaetano Burton , the same day at 12:00 PM, for mental health counseling services.) Functional capacity at discharge: independent ambulation Overall status at discharge: Stable Disposition: Home, Self-Care Hospital Course Hospital course: Mr. Yang is a 31 year old male admitted for depression suicidal ideation. For details of admission. See H&P On the units patient was started on his medication, he tolerated the medication , he was seclusive to his room most of time and did not attend groups or activities. 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 Medication and treatment plan were discussed with the patient and he was advised to keep appointments for follow-up. On discharge patient was medically stable denied any suicidal ideation and was future oriented and showing some insight into his illness. - Time Spent with Patient Total time spent providing and/or coordinating discharge services: Less than 30 minutes Quality - Multiple Antipsychotics Patient discharged on 2 or more antipsychotic medications: Yes (Monotherapy failed, well-maintained on current medication) - Justification Documentation of: History 3 failed trials of monotherapy Procedures - Procedures Procedures: Medication Management, Crisis Stabilization, Supportive Therapy, Group Therapy, Psychoeducational Therapy Mental Status Exam - Mental Status Exam Patient orientation: Yes Person, Yes Time, Yes Place Level of alertness: Alert Patient appearance: Appropriate, Well Groomed Behavior: calm, cooperative, anxious, withdrawn Psychomotor activity: Normal Eye contact: Minimal Contact Mood description: Euthymic/stable Affect description: congruent with mood, constricted Speech pattern: Normal rate, Normal rhythm, Normal tone Speech Volume: Normal Thought process: Linear, Goal Oriented Thought Content: No Suicidal ideation, No Homicidal ideation, No Overt delusions Perceptual Disturbances: No Auditory hallucinations, No Visual hallucinations Judgment: Limited Insight: Partial
== END 2017-03-12 16:00 | disposition home or self-care (01) | DRG 885 ==
LOC: EMEROO 12:28 → 1ANU 15:32 → SUATTDRO 15:32 → 1ANU 15:38
PROVIDERS: ADMIT Psychiatry & Neurology Psychiatry; ATTEND Psychiatry & Neurology Psychiatry